=== PATIENT | female | born 1995 | race Caucasian/White ===

== ENCOUNTER 2018-09-18 19:14 | Emergency (ER) | payer MEDICAID ==
[2018-09-18] MEDS ORDERED: Sodium Chloride 0.9% 1,000 ML IV ONE (19:55)
--- NOTE | 2018-09-18 19:59 | C.PDOC ---
History Of Present Illness 25 y/o female presents to the ED complaining of vomiting after meals since yesterday. She denies any diarrhea, abdominal pain, or urinary symptoms. No other medical complaints at this time. Denies recent travel. No fever or chills. Time Seen by Provider: 09/18/18 19:40 Chief Complaint (Nursing): GI Problem History Per: Patient History/Exam Limitations: no limitations Onset/Duration Of Symptoms: Days Current Symptoms Are (Timing): Still Present Context: Food Associated Symptoms: Nausea, Vomiting Past Medical History Reviewed: Historical Data, Nursing Documentation, Vital Signs Vital Signs: Last Vital Signs Temp 97.5 F L 09/18/18 19:20 Pulse 88 09/18/18 19:20 Resp 16 09/18/18 19:20 BP 110/73 09/18/18 19:20 Pulse Ox 95 09/18/18 19:20 - Medical History PMH: No Chronic Diseases Surgical History: No Surg Hx Family History: States: No Known Family Hx - Social History Hx Alcohol Use: No Hx Substance Use: No - Immunization History Hx Influenza Vaccination: Yes Review Of Systems Except As Marked, All Systems Reviewed And Found Negative. Constitutional: Negative for: Fever, Chills Gastrointestinal: Positive for: Vomiting (after meals). Negative for: Diarrhea, Hematochezia, Hematemesis Physical Exam - Physical Exam Appears: Non-toxic, No Acute Distress Skin: Warm, Dry Head: Atraumatic, Normacephalic Eye(s): bilateral: Normal Inspection, PERRL, EOMI Oral Mucosa: Moist Neck: Normal ROM Cardiovascular: Rhythm Regular, No Murmur Respiratory: Normal Breath Sounds, No Accessory Muscle Use Gastrointestinal/Abdominal: Soft, No Tenderness, No Guarding, No Rebound Extremity: Bilateral: Atraumatic, Normal Color And Temperature, Normal ROM Neurological/Psych: Oriented x3, Normal Speech ED Course And Treatment - Laboratory Results Result Diagrams: 09/18/18 20:13 09/18/18 20:13 ECG: Interpreted By Me, Viewed By Me ECG Rhythm: Sinus Rhythm Interpretation Of ECG: no ST or T wave changes Rate From EC O2 Sat by Pulse Oximetry: 95 (RA) Pulse Ox Interpretation: Normal Medical Decision Making Medical Decision Making: vomiting- rom abodminal, metabolic infecitous etiology Plan: --Blood work --UA --IV fluids --4 mg IV Zofran --Reassess and dispo Labs reviewed, K 2.9 Will give 40meq potassium chloride PO pt later reports cp. additonal labs dimer imaging ekg ordered. pt anxious appearing ativan given. after ativan all symptoms resolved asking for d.c. advise outp tuf reutrn precautions. abd soft nottp. Disposition - Disposition Referrals: [facility] [Outside] [facility] [Outside] Disposition: HOME/ ROUTINE Disposition Time: 23:00 Condition: STABLE Additional Instructions: return to er with worsening symptoms or concerns. Instructions: Chest Pain, Hypokalemia (DC), Anxiety, Adult (DC), Nausea and Vomiting, Adult Forms: [employer] (Algerian) - Clinical Impression Clinical Impression: Vomiting, Hypokalemia, Chest pain - Scribe Statement The provider has reviewed the documentation as recorded by the Obdulio Chapman Provider Attestation: All medical record entries made by the Shelbieibeder were at my direction and personally dictated by me. I have reviewed the chart and agree that the record accurately reflects my personal performance of the history, physical exam, medical decision making, and the department course for this patient. I have also personally directed, reviewed, and agree with the discharge instructions and disposition.
[2018-09-18] MEDS ORDERED: Sodium Chloride 0.9% 1,000 ML ONE (20:03)
[2018-09-18 20:13] LABS: HCG,QUALITATIVE URINE NEGATIVE (NEGATIVE)
[2018-09-18 20:17] LABS: BASO % 0.5 % (0.0-2.0); EOS # 0.1 K/uL (0.0-0.7); EOS % 1.8 % (0.0-4.0); HEMOGLOBIN 13.1 g/dL (11.0-16.0); LYMPH # 2.5 K/uL (1.0-4.3); LYMPH % 41.6 % (20.0-40.0); MEAN CELL VOLUME 89.5 fL (81.0-99.0); MEAN CORPUSCULAR HEMOGLOBIN 30.4 pg (27.0-31.0); MONO # 0.4 K/uL (0.0-0.8); MONO % 7.2 % (0.0-10.0); NEUT # 2.9 K/uL (1.8-7.0); NEUT % 48.9 % (50.0-75.0); RBC 4.3 Mil/uL (3.80-5.20); RED CELL DISTRIBUTION WIDTH 13.4 % (11.5-14.5)
[2018-09-18 20:18] LABS: SQUAMOUS EPITHIAL 7 /hpf (0-5); URINE BACTERIA FEW (<OCC); URINE BILIRUBIN NEGATIVE (NEGATIVE); URINE BLOOD 1+ (NEGATIVE); URINE CALCIUM OXALATE CRYSTALS MANY /hpf (<OCC); URINE CLARITY Hazy (Clear); URINE COLOR Yellow (YELLOW); URINE GLUCOSE (UA) NORMAL (Normal); URINE LEUKOCYTE ESTERASE 1+ Leu/uL (Negative); URINE PROTEIN NEGATIVE (NEGATIVE)
[2018-09-18 20:25] LABS: INR 1.3; PROTHROMBIN TIME 14.2 SECONDS (9.7-12.2)
[2018-09-18 20:30] LABS: ALB/GLOB RATIO 1.2 (1.0-2.1); ALBUMIN 4.5 g/dL (3.5-5.0); ALT/SGPT 17 U/L (9-52); AST/SGOT 24 U/L (14-36); BLOOD UREA NITROGEN 9 mg/dL (7-17); CALCIUM 9.1 mg/dl (8.6-10.4); GFR NON-AFRICAN AMERICAN > 60; LIPASE 77 U/L (23-300)
[2018-09-18] MEDS ORDERED: Potassium Chloride 20 mEq ER Tab PO STA (20:37)
[2018-09-18] MEDS ORDERED: Potassium Chloride 20 mEq ER Tab PO ONE (20:42)
[2018-09-18 23:47] VITALS: BP 125/79; PULSE 85; RESP 16; TEMP 98.2
--- NOTE | 2018-09-19 09:07 | RAD ---
Date of service: 09/18/2018 HISTORY: sob COMPARISON: No prior. TECHNIQUE: Chest PA and lateral FINDINGS: LUNGS: No active pulmonary disease. PLEURA: No significant pleural effusion identified. No pneumothorax apparent. CARDIOVASCULAR: No aortic atherosclerotic calcification present. Normal cardiac size. No pulmonary vascular congestion. OSSEOUS STRUCTURES: No significant abnormalities. VISUALIZED UPPER ABDOMEN: Normal. OTHER FINDINGS: None. IMPRESSION: No active disease.
[2018-09-21 07:54] VITALS: O2SAT 95
== END 2018-09-18 23:47 | disposition home or self-care (01) ==
LOC: C.ER 19:14
DX: E87.6 Hypokalemia (principal); R07.9 Chest pain, unspecified; R11.10 Vomiting, unspecified
CPT/HCPCS: 71046; 80053; 81001; 83690; 84484; 84703; 85025; 85378; 85610; 85730; 96361; 96374; 96375; 99285; J2060; J2405; J3480; J7030